=== PATIENT | male | born 1995 | race Caucasian/White ===

== ENCOUNTER 2018-12-01 22:42 | Emergency (ER) | payer BC, OTHER ==
[2018-12-01] MEDS: KETOROLAC 30 MG INJ IM (23:28)
== END 2018-12-02 00:43 | disposition home or self-care (01) ==
LOC: FTE 22:42
DX: R07.9 Chest pain, unspecified (principal); I10 Essential (primary) hypertension
CPT/HCPCS: 71045; 93005; 96372; 99284-25